=== PATIENT | female | born 1980 | race Caucasian/White ===

== ENCOUNTER → 2020-05-01 15:27 | Outpatient (BNVA) | payer MEDICAID, SELFPAY | PROVIDERS: Family Provider Nurse Practitioner Family; PCP Nurse Practitioner Family; Visit Provider Obstetrics & Gynecology | DX: N94.3 Premenstrual tension syndrome (principal) | CPT/HCPCS: 82670; 83001; 84443 ==

== ENCOUNTER → 2020-06-20 08:28 | Outpatient (BNVA) | payer BC, MEDICAID, SELFPAY | PROVIDERS: Family Provider Nurse Practitioner Family; PCP Nurse Practitioner Family; Visit Provider Psychiatry & Neurology Psychiatry | DX: F41.1 Generalized anxiety disorder (principal); F40.01 Agoraphobia with panic disorder; F33.2 Major depressive disorder, recurrent severe without psychotic features | CPT/HCPCS: 99204 ==

== ENCOUNTER → 2020-08-12 13:57 | Outpatient (BNVA) | payer BC, MEDICAID, SELFPAY | PROVIDERS: Family Provider Nurse Practitioner Family; PCP Nurse Practitioner Family; Visit Provider Obstetrics & Gynecology | DX: R39.9 Unspecified symptoms and signs involving the genitourinary system (principal) | CPT/HCPCS: 81000 ==

== ENCOUNTER → 2020-12-31 11:32 | Outpatient (BNVA) | payer BC, MEDICAID, SELFPAY | PROVIDERS: Family Provider Nurse Practitioner Family; Visit Provider Specialist | DX: G56.03 Carpal tunnel syndrome, bilateral upper limbs (principal) | CPT/HCPCS: 95910 ==

== ENCOUNTER → 2021-04-22 15:11 | Outpatient (BNVA) | payer BC, MEDICAID, SELFPAY | PROVIDERS: Family Provider Nurse Practitioner Family; Referring Provider Orthopaedic Surgery; Visit Provider Physician Assistant | DX: M54.2 Cervicalgia (principal) | CPT/HCPCS: 72050 ==

== ENCOUNTER → 2021-05-01 15:17 | Outpatient (BNVA) | payer MEDICAID, SELFPAY | PROVIDERS: Family Provider Nurse Practitioner Family; Visit Provider Orthopaedic Surgery | DX: Z20.822 Contact with and (suspected) exposure to COVID-19 (principal); Z01.812 Encounter for preprocedural laboratory examination | CPT/HCPCS: 87635 ==

== ENCOUNTER 2021-05-08 11:28 | Day surgery (SDC) | payer MEDICAID, SELFPAY ==
[2021-05-07 12:32] VITALS: BMI 35.4
[2021-05-08] VITALS (7 sets, daily range): BP systolic 117–150; BP diastolic 79–99; PULSE 77–89; RESP 18–20; TEMP 36.4–37.1; O2SAT 97–99
[2021-05-08] MEDS: sodium chloride 0.9% 1,000 ML 30 ML IV (12:22)
--- NOTE | 2021-05-08 12:36 | P.ANESASSM_ITS ---
Pre-Anesthetic Assessment Pre-Anesthetic Assessment: Height/Weight: Height 1.6 m Weight 90.718 kg Temp Pulse Resp BP Pulse Ox 98.2 F 89 18 140/88 97 05/08/21 11:42 05/08/21 11:42 05/08/21 11:42 05/08/21 11:58 05/08/21 11:42 Preop Diagnosis: Carpal tunnel syndromeLeft Proposed Procedure: Operation Date: 05/08/21 12:50 Proposed Procedures p Carpal Tunnel Release 15067 G56.02(Left) - Ezequiel Phelps MD Was Beta Memo taken within 24 hours: N/A Was Clonidine taken within 24 hours: N/A Last intake: Intake Last Liquid Date 05/07/21 Last Liquid Time 23:59 Last Solid Date 05/07/21 Last Solid Time 22:30 Social: Social History: No alcohol and No tobacco Exam: Pre-Anes Outpt Exam: alert, oriented x 3, clear to auscultation bilaterally and regular rate & rhythm Airway: Submandibular: WNL Cervical ROM: WNL MP: 2 Dentition: Full History/ROS: No significant history except as noted Metabolic: Metabolic: Thyroid Anesthetic Plan: ASA status: 2 Anesthesia: MAC and Regional (specify below) (Shay marks) Risk of > 500 ml blood loss (7ml/kg in children): No Meds/Allergies Current Medications: Current Medications Generic Name Dose Route Start Last Admin Trade Name Freq PRN Reason Stop Dose Admin Sodium Chloride 1,000 mls @ 30 ml s/hr 05/08/21 11:45 05/08/21 12:22 Sodium Chloride 0.9% IV 05/09/21 11:44 30 mls/hr .Q24H RONALD Administration PFSH Anesthesia PFSH: Medical History 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 Depression with anxiety History of gestational diabetes GDM with fourth Hot flashes Had LSO, but still has right ovary. Hypothyroidism Surgical History H/O section (09/23/99) H/O section (05/11/02) H/O section (10/05/03) Performed by Dr. Keyes at [facility] in [place], [place]. H/O section (03/28/18) With tubal ligation. Performed by Dr. Kimball at [facility] in [place], [place]. H/O dilation and curettage (~11/2003) Due to bleeding H/O tubal ligation (03/28/18) Performed at time of section. Performed by Dr. Kimball at [facility] in [place], [place]. S/P hysterectomy with oophorectomy (04/04/19) TLH converted to JEF with LSO, extensive adhesiolysis, bladder cystotomy repair. Performed by Dr. Keyes at [facility] in [place], [place]. S/P laparoscopic cholecystectomy (07/27/18) Performed by Dr. Roach at [facility] in [place], [place]. S/P laparoscopy (09/13/09) ROMELIA. Performed by Dr. Keyes at [facility] in [place], [place]. 3-hour adhesiolysis due to omental, ovarian, and tubal adhesions of the pelvis. S/P laparoscopy (08/30/10) ROMELIA. Performed by Dr. Keyes at [facility] in [place], [place]. Extensive adhesions of the omentum to the left uterus and ovary and adhesions of the right tube and ovary. Family History Father Diabetes Hyperlipidemia Hypertension Stroke Heart disease Sister Diabetes Grandmother Heart disease paternal Breast cancer paternal Diabetes Paternal Hypertension Paternal Thyroid disease Paternal Mother Thyroid disease Grandfather Diabetes Paternal Hypertension Paternal Lung cancer Maternal Social History Second hand smoke exposure: No Alcohol intake: never Current gender identity: Female Data Anesthesia Cardiac Studies: No Data to Display
--- NOTE | 2021-05-08 13:46 | W.PM.OPSUD ---
Surgery/Procedure H&P Update DATE OF PROCEDURE: May 08, 2021 DATE H&P PERFORMED: 04/28/21 PREOP DIAGNOSIS: Carpal tunnel syndromeLeft PLANNED PROCEDURE: Operation Date: 05/08/21 12:50 Proposed Procedures p Carpal Tunnel Release 14387 G56.02(Left) - Ezequiel Phelps MD
--- NOTE | 2021-05-08 14:38 | PM.OP ---
Operative Report Date of procedure: May 08, 2021 Pre-op Diagnosis: Carpal tunnel syndromeLeft Post-op diagnosis: same Post-op Findings: Same Procedure Done: Left carpal tunnel release Pathology: none sent Surgeon: Ezequiel Phelps Anesthesia: Nerve Block (Shay block) Estimated blood loss (mL): 5 Tourniquet time (min): 20 Findings: No masses or space-occupying lesions were seen within the carpal tunnel Condition: stable Disposition: PACU Procedure: Patient was taken to the operating room and anesthesia provided by the anesthesia service. She was prepped and draped with the arm exposed. A timeout was performed. A 3 cm long incision was made in line with the fourth ray from the distal edge of the carpal tunnel extending proximally. The subcutaneous fat and palmar fascia was divided with a scalpel blade. Under loupe magnification the ulnar neurovascular bundle was identified distally. A hemostat could be passed under the transverse carpal ligament allowing the distal 25% to be divided. A slotted guide was then passed beneath the transverse carpal ligament and the middle 50% divided. Blunt scissors were then passed over the guide freeing the proximal ligament. The tourniquet was deflated. Hemostasis provided with electrocautery. Wound edges were infiltrated with 10 cc of a half percent Marcaine solution. Skin edges were reapproximated with 3-0 Prolene. Sterile dressings were applied. The patient was taken to the recovery room in stable condition
[2021-05-08] MEDS: HYDROcodone-acetaminophen 5-325 mg Tablet 1 TAB PO (15:19)
--- NOTE | 2021-05-08 15:34 | ANE.PACU2 ---
Inpatient post-anesthesia follow up: Airway intact: Yes Vital signs: Temperature 98.0 F Pulse Rate 79 Respiratory Rate 18 Blood Pressure 150/99 Pulse Oximetry 98 Oxygen Delivery Me thod Room Air Oxygen Flow Rate Fraction of Inspir ed Oxygen Hydration adequate: Yes Nausea and vomiting: No Pain level: 1 Mental status: Baseline
== END 2021-05-08 15:19 | disposition home or self-care (01) ==
PROVIDERS: PCP Family Medicine; Visit Provider Orthopaedic Surgery
PROC: (CPT 64721; principal; 2021-05-08 12:40)
DX: G56.02 Carpal tunnel syndrome, left upper limb (principal); E03.9 Hypothyroidism, unspecified; Z82.49 Family history of ischemic heart disease and other diseases of the circulatory system; Z83.3 Family history of diabetes mellitus
CPT/HCPCS: 64721; 96365; J0690; J2250; J2704; J3010; J3490; J7030

== ENCOUNTER → 2021-09-22 09:30 | Outpatient (BNVA) | payer MEDICAID, SELFPAY | PROVIDERS: PCP Family Medicine; Visit Provider Surgery | DX: K52.9 Noninfective gastroenteritis and colitis, unspecified (principal); R19.7 Diarrhea, unspecified | CPT/HCPCS: 99204 ==

== ENCOUNTER 2021-10-01 11:52 | Emergency (ER) | payer MEDICAID, SELFPAY ==
[2021-10-01 12:18] VITALS: BP 118/77; PULSE 88; RESP 18; TEMP 36.3; O2SAT 97; BMI 33.3
[2021-10-01 12:52] VITALS: BP 135/75; PULSE 86; O2SAT 94
[2021-10-01 12:59] LABS: Basophils % 0.4 %; Eosinophils # 0.1 10^3/uL (0.0-0.8); Eosinophils % 1.2 %; Hemoglobin 14.5 g/dL (11.5-15.3); Lymphocytes # 2.8 10^3/uL (0.8-4.8); Lymphocytes % 27.7 %; Mean Corpuscular HGB Conc 33.7 g/dL (30.0-36.0); Mean Corpuscular Hemoglobin 28.7 pg (28.0-34.0); Monocytes # 0.8 10^3/uL (0.2-0.9); Monocytes % 7.5 %; Neutrophils # 6.41 10^3/uL (1.8-7.7); Neutrophils % 62.8 %; Nucleated Red Blood Cells % 0 %; Platelet Count 389 10^3/cmm (130-400); Red Blood Count 5.06 10^6/uL (4.1-5.3); Red Cell Distribution Width 12.8 % (12.1-15.1); White Blood Count 10.2 10^3/uL (4.0-10.0)
--- NOTE | 2021-10-01 13:12 | ED_ITS ---
Documented by User: ARTURO Cota 10/01/21 15:19 HPI - Abdominal Pain General: Chief Complaint: Abdominal Pain Stated Complaint: Nausous, headache, ABD pain Time Seen by Provider: 10/01/21 12:44 Source: patient Mode of arrival: ambulatory Limitations: no limitations History of Present Illness: Patient is a nice 41-year-old female presents to ED today for evaluation of intermittent abdominal pains over the past week. Patient is also had intermittent nonbloody emesis. Patient tells me she has a history of a bad abdomen dating she has had multiple abdominal surgeries including repeat C-sections, hysterectomy, left oophorectomy, several lysis of adhesions, and a cholecystectomy. She states because of the surgery she chronically has intermittent abdominal pains as well as nausea and diarrhea. She states over the past week or so she did not know if her discomfort was secondary to her chronic discomforts or something new. States she has been having sweats over the past week but again states she has hormone problems so stated this was not overly abnormal for her. She was seen at one of our outside clinics and evaluated and sent to the ED for tenderness to her right lower quadrant and rule out appendicitis. Patient has not been running fevers. No urinary complaints. Bowel movements are loose but states this is baseline for her following her cholecystectomy. MD elicited complaint: abdominal pain Pain Consistency: intermittent Location: Diffuse and RLQ Exacerbating factors: nothing Relieving factors: nothing Associated Symptoms: Reports diarrhea (chronic), nausea and vomiting; Denies change in bowel habits, chills, dysuria, fever(s), hematochezia, hematuria, hematemesis and melena Review of Systems Const: Denies: fever(s), chills, body aches, fatigue or malaise Card: Denies: chest pain Resp: Denies: dyspnea GI: Reports: abdominal pain, nausea, vomiting and diarrhea (chronic); Denies: hematemesis, change in bowel habits, hematochezia or melena : Denies: flank pain, difficulty voiding, dysuria, hematuria or vaginal bleeding Musc: Denies: neck pain, back pain, extremity pain or joint pain Skin/Breast: Denies: rash Neuro: Denies: headache(s), numbness in extremities, weakness in extremities, sensory changes or dizziness [facility] ED PFSH: Medical History 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 Depression with anxiety History of gestational diabetes GDM with fourth Hot flashes Had LSO, but still has right ovary. Hypothyroidism Surgical History H/O section (09/23/99) H/O section (05/11/02) H/O section (10/05/03) Performed by Dr. Keyes at [facility] in [place], [place]. H/O section (03/28/18) With tubal ligation. Performed by Dr. Kimball at [facility] in [place], [place]. H/O dilation and curettage (~11/2003) Due to bleeding H/O tubal ligation (03/28/18) Performed at time of section. Performed by Dr. Kimball at [facility] in [place], [place]. History of carpal tunnel repair S/P hysterectomy with oophorectomy (04/04/19) TLH converted to JEF with LSO, extensive adhesiolysis, bladder cystotomy repair. Performed by Dr. Keyes at [facility] in [place], [place]. S/P laparoscopic cholecystectomy (07/27/18) Performed by Dr. Roach at [facility] in [place]. S/P laparoscopy (09/13/09) ROMELIA. Performed by Dr. Keyes at [facility] in [place], [place]. 3-hour adhesiolysis due to omental, ovarian, and tubal adhesions of the pelvis. S/P laparoscopy (08/30/10) ROMELIA. Performed by Dr. Keyes at [facility] in [place], [place]. Extensive adhesions of the omentum to the left uterus and ovary and adhesions of the right tube and ovary. Family History Father Diabetes Hyperlipidemia Hypertension Stroke Heart disease Sister Diabetes Grandmother Heart disease paternal Breast cancer paternal Diabetes Paternal Hypertension Paternal Thyroid disease Paternal Mother Thyroid disease Grandfather Diabetes Paternal Hypertension Paternal Lung cancer Maternal Social History Smoking and tobacco status: never smoked Second hand smoke exposure: No Alcohol intake: never Current gender identity: Female Physical Exam Const: COMMON NORMALS: no acute distress, patient oriented x3, no limitations and alert GENERAL APPEARANCE: cooperative NUTRITIONAL APPEARANCE: overweight ORIENTATION/CONSCIOUSNESS: Yes awake, Yes oriented to person, Yes oriented to place and Yes oriented to time Resp: COMMON NORMALS: normal respiratory effort and clear to auscultation bilaterally AUSCULTATION: clear to auscultation bilaterally Cardio: COMMON NORMALS: regular rate and regular rhythm RATE: regular rate RHYTHM: regular rhythm GI: COMMON NORMALS: Normal to inspection, nondistended, normoactive bowel sounds present, Soft to palpation, No hepatosplenomegaly present and no masses INSPECTION: Yes normal to inspection AUSCULTATION: Yes normoactive bowel sounds PALPATION: Yes Soft to palpation, Yes Tenderness to palpation present (GI) (diffuse tenderness but maximum tenderness to RLQ), No Guarding due to palpation present (GI), No Rigid due to palpation and Yes No hepatosplenomegaly present : COMMON NORMALS: Yes no CVA tenderness BLADDER/KIDNEY EXAM: Yes no CVA tenderness Back/Pelvis: COMMON NORMALS: no CVA tenderness Extremity: COMMON NORMALS: normal to inspection Neuro: GASTON COMA SCALE: document GCS findings [place] coma scale eye opening: Spontaneous Gaston coma scale verbal response: Orientated [place] coma scale motor response: Obey commands [place] coma scale total score: 15 COMMON NORMALS: patient oriented x3, moves all extremities, no focal motor deficits and no sensory deficits noted SENSORIUM/ORIENTATION: Yes alert, Yes oriented to person, Yes oriented to place and Yes oriented to time Skin: COMMON NORMALS: no rashes or lesions noted GENERAL SKIN EXAM: no rashes or lesions noted Course Vital Signs: Vital signs: Vital Signs Temperature 97.3 F L 10/01/21 12:18 Pulse Rate 62 10/01/21 15:32 Respiratory Rate 18 10/01/21 12:18 Blood Pressure 129/61 10/01/21 15:32 Pulse Oximetry 100 10/01/21 15:32 MDM - Abdominal Pain Medical Decision Making Patient is a nice 41-year-old female with a history of chronic abdominal d iscomforts. She had had some acute on chronic pains over the past week or so. On exam she does have diffuse abdominal tenderness with most of her pain being near her right lower quadrant. She is not tachycardic or febrile. Her white count is 10.2. CT scan is essentially normal. She does have an appendicolith present in her distal appendix but there is no evidence for acute appendicitis. Patient was given strict instructions regarding how this could in theory increase her risk for later developing acute appendicitis and signs and symptoms that should prompt a return to ED evaluation were discussed with her. Her UA does show hematuria without evidence for infection. Patient clinically does not present like a kidney stone and no stone was seen on CT imaging. She is not having UTI-like symptoms. She is status post hysterectomy and denies any vaginal bleeding. We will culture this and recommend she have a UA repeated through her PCP office. Lab Data : 10/01/21 12:45 10/01/21 12:45 Labs/Radiology: Radiology Impressions Abdomen/Pelvis CT 10/01/21 13:17 IMPRESSION: 1. No renal obstruction or hydronephrosis. 2. Normal size appendix. There is an appendicolith present in the distal appendix. At this time there is no evidence for acute appendicitis. 3. Prior cholecystectomy. 4. Supraumbilical and umbilical hernias. Laboratory Results WBC 10.2 10^3/uL (4.0-10.0) H 10/01/21 12:45 RBC 5.06 10^6/uL (4.1-5.3) 10/01/21 12:45 Hgb 14.5 g/dL (11.5-15.3) 10/01/21 12:45 Hct 43.0 % (37.0-47.0) 10/01/21 12:45 MCV 85.0 fl (81-99) 10/01/21 12:45 MCH 28.7 pg (28.0-34.0) 10/01/21 12:45 MCHC 33.7 g/dL (30.0-36.0) 10/01/21 12:45 RDW 12.8 % (12.1-15.1) 10/01/21 12:45 Plt Count 389 10^3/cmm (130-400) 10/01/21 12:45 MPV 9.0 fL (7.4-10.4) 10/01/21 12:45 Neut % (Auto) 62.8 % 10/01/21 12:45 Lymph % (Auto) 27.7 % 10/01/21 12:45 Hodgeman % (Auto) 7.5 % 10/01/21 12:45 Eos % (Auto) 1.2 % 10/01/21 12:45 Baso % (Auto) 0.4 % 10/01/21 12:45 Neut # (Auto) 6.41 10^3/uL (1.8-7.7) 10/01/21 12:45 Lymph # (Auto) 2.8 10^3/uL (0.8-4.8) 10/01/21 12:45 Hodgeman # (Auto) 0.8 10^3/uL (0.2-0.9) 10/01/21 12:45 Eos # (Auto) 0.1 10^3/uL (0.0-0.8) 10/01/21 12:45 Baso # (Auto) 0.0 10^3/uL (0.0-0.1) 10/01/21 12:45 Nucleated RBC % (auto) 0 % 10/01/21 12:45 Nucleated RBCs # 0.0 /100WBC 10/01/21 12:45 Sodium 135 mmol/L (136-145) L 10/01/21 12:45 Potassium 3.4 mmol/L (3.5-5.1) L 10/01/21 12:45 Chloride 98 mmol/L (98-107) 10/01/21 12:45 Carbon Dioxide 24 mmol/L (22-29) 10/01/21 12:45 Anion Gap 16.4 (5-19) 10/01/21 12:45 BUN 7 mg/dL (6-20) 10/01/21 12:45 Creatinine 0.5 mg/dL (0.5-0.9) 10/01/21 12:45 GFR Calculation 136.6 mL/min (90-130) H 10/01/21 12:45 Glucose 83 mg/dL (65-115) 10/01/21 12:45 Calculated Osmolality 277 mOsm/kg (285-295) L 10/01/21 12:45 Calcium 9.9 mg/dL (8.5-10.5) 10/01/21 12:45 Total Bilirubin 0.5 mg/dL (0.15-1.2) 10/01/21 12:45 AST 16 U/L (0-32) 10/01/21 12:45 ALT 10 U/L (0-33) 10/01/21 12:45 Alkaline Phosphatase 66 IU/L (35-105) 10/01/21 12:45 Total Protein 7.9 g/dL (6.6-8.7) 10/01/21 12:45 Albumin 4.7 g/dL (3.5-5.2) 10/01/21 12:45 Globulin 3.2 g/dL (1.3-4.6) 10/01/21 12:45 Lipase 13 U/L (13-60) 10/01/21 12:45 Urine Color Yellow (Yellow) 10/01/21 13:35 Urine Appearance Clear (CLEAR) 10/01/21 13:35 Urine pH 5 (5-7) 10/01/21 13:35 Ur Specific [place] 1.030 (1.005-1.030) 10/01/21 13:35 Urine Protein Neg (Negative) 10/01/21 13:35 Urine Glucose (UA) Norm (Normal) 10/01/21 13:35 Urine Ketones 2+ (Negative) H 10/01/21 13:35 Urine Blood 3+ (Negative) H 10/01/21 13:35 Urine Nitrate Negative (Negative) 10/01/21 13:35 Urine Bilirubin Neg (Negative) 10/01/21 13:35 Urine Urobilinogen Norm mg/dL (Negative) 10/01/21 13:35 Ur Leukocyte Esterase Negative (Negative) 10/01/21 13:35 Urine RBC 0-4 /hpf (0-2) H 10/01/21 13:35 Urine WBC 0-4 /hpf (0-5) H 10/01/21 13:35 Ur Squamous Epith Cells 0-4 /hpf (0-5) H 10/01/21 13:35 Amorphous Sediment Not Reportable 10/01/21 13:35 Urine Bacteria 2+ /hpf (NONE) H 10/01/21 13:35 Urine Mucus 1+ /hpf 10/01/21 13:35 Discharge Plan Discharge Patient Disposition: Home Clinical Impression: Abdominal pain of unknown cause, Appendicolith Condition: Stable Prescriptions: New ondansetron 4 mg tablet,disintegrating 4 mg PO Q8H PRN (Reason: nausea and vomiting) Qty: 14 0RF No Action estradiol 1 mg tablet 1 mg PO DAILY 0RF Rx Instructions: off 1 week; repeat cycle levothyroxine 125 mcg tablet 125 mcg PO DAILY 0RF carisoprodol 250 mg tablet 250 mg PO TID Qty: 30 2RF zolpidem [Ambien] 10 mg tablet 10 mg PO .at bedtime 30 Days Qty: 30 2RF ondansetron HCl 4 mg tablet 4 mg PO .q6hr Qty: 30 2RF escitalopram oxalate 5 mg tablet 5 mg PO DAILY Qty: 30 2RF quetiapine [Seroquel] 50 mg tablet 50 mg PO DAILY Qty: 30 0RF cholestyramine-aspartame 4 gram Powder In Packet 4 g PO DAILY 0RF Discharge Orders: Discharge ED (Routine); Ordered 10/01/21 Ordered By: Romy Coffman Referrals: Doc Lucas DO [Primary Care Provider] - Patient Instructions: Abdominal Pain (ED) Activity Restrictions/Additional Instructions: As we discussed your blood work is essentially normal here. You were found to have blood in your urine without evidence for infection. I would like you to have a repeat UA performed by her primary care provider in the next week or so. As we discussed you had an appendicolith in your appendix but there is nothing to suggest acute appendicitis at this time. Recommend you continue to watch symptoms closely. You need to return to the emergency department for worsening abdominal pains, localizing to your right lower quadrant, fevers greater than 100.4, generally feeling worse, or any other concerns you may have. 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 Depression with anxiety History of gestational diabetes GDM with fourth Hot flashes Had LSO, but still has right ovary. Hypothyroidism Surgical History H/O section (09/23/99) H/O section (05/11/02) H/O section (10/05/03) Performed by Dr. Keyes at [facility] [place] in [place], [place]. H/O section (03/28/18) With tubal ligation. Performed by Dr. Kimball at [facility] in [place], [place]. H/O dilation and curettage (~11/2003) Due to bleeding H/O tubal ligation (03/28/18) Performed at time of section. Performed by Dr. Kimball at [facility] [place] in [place], [place]. History of carpal tunnel repair S/P hysterectomy with oophorectomy (04/04/19) TLH converted to JEF with LSO, extensive adhesiolysis, bladder cystotomy repair. Performed by Dr. Keyes at [facility] [place] in [place], [place]. S/P laparoscopic cholecystectomy (07/27/18) Performed by Dr. Roach at [facility] [place] in [place]. S/P laparoscopy (09/13/09) ROMELIA. Performed by Dr. Keyes at [facility] [place] in [place], [place]. 3-hour adhesiolysis due to omental, ovarian, and tubal adhesions of the pelvis. S/P laparoscopy (08/30/10) ROMELIA. Performed by Dr. Keyes at [facility] in [place], [place]. Extensive adhesions of the omentum to the left uterus and ovary and adhesions of the right tube and ovary. Family History Father Diabetes Hyperlipidemia Hypertension Stroke Heart disease Sister Diabetes Grandmother Heart disease paternal Breast cancer paternal Diabetes Paternal Hypertension Paternal Thyroid disease Paternal Mother Thyroid disease Grandfather Diabetes Paternal Hypertension Paternal Lung cancer Maternal Social History Smoking and tobacco status: never smoked Second hand smoke exposure: No Alcohol intake: never Current gender identity: Female Physical Exam Neuro: GASTON COMA SCALE: document GCS findings [place] coma scale total score: 15 Course Vital Signs: Vital signs: Vital Signs Temperature 97.3 F L 10/01/21 12:18 Pulse Rate 62 10/01/21 15:32 Respiratory Rate 18 10/01/21 12:18 Blood Pressure 129/61 10/01/21 15:32 Pulse Oximetry 100 10/01/21 15:32 MDM - Abdominal Pain Medical Decision Making Patient is a nice 41-year-old female with a history of chronic abdominal discomforts. She had had some acute on chronic pains over the past week or so. On exam she does have diffuse abdominal tenderness with most of her pain being near her right lower quadrant. She is not tachycardic or febrile. Her white count is 10.2. CT scan is essentially normal. She does have an appendicolith present in her distal appendix but there is no evidence for acute appendicitis. Patient was given strict instructions regarding how this could in theory increase her risk for later developing acute appendicitis and signs and symptoms that should prompt a return to ED evaluation were discussed with her. Her UA does show hematuria without evidence for infection. Patient clinically does not present like a kidney stone and no stone was seen on CT imaging. She is not having UTI-like symptoms. She is status post hysterectomy and denies any vaginal bleeding. We will culture this and recommend she have a UA repeated through her PCP office. Chart reviewed and patient discussed with midlevel. Agree with assessment and plan. Medical Records I reviewed the patient's medical records. Lab Data I reviewed the patient's lab results. : 10/01/21 12:45 10/01/21 12:45 Labs/Radiology: Radiology Impressions Abdomen/Pelvis CT 10/01/21 13:17
[2021-10-01 13:16] LABS: Alanine Aminotransferase 10 U/L (0-33); Albumin Level 4.7 g/dL (3.5-5.2); Alkaline Phosphatase 66 IU/L (35-105); Blood Urea Nitrogen 7 mg/dL (6-20); Calcium 9.9 mg/dL (8.5-10.5); Carbon Dioxide 24 mmol/L (22-29); Chloride 98 mmol/L (98-107); Globulin 3.2 g/dL (1.3-4.6); Glomerular Filtration Rate 136.6 mL/min (90-130); Glucose 83 mg/dL (65-115); Lipase 13 U/L (13-60); Osmolality Calculated 277 mOsm/kg (285-295); Sodium 135 mmol/L (136-145); Total Bilirubin 0.5 mg/dL (0.15-1.2); Total Protein 7.9 g/dL (6.6-8.7)
--- NOTE | 2021-10-01 13:17 | CT_ITS ---
WS: [id number] CT ABDOMEN AND PELVIS NONCONTRAST HISTORY: abdominal pain, vomiting; max tenderness to RLQ TECHNIQUE: Imaging performed through the abdomen and pelvis. Coronal and sagittal reformats are submi tted. All CT scans at [facility] use at least one of these dose optimization techniques: auto mated exposure control; mA and/or kV adjustment per patient size (includes targeted exams where dose is matched to clinical indication); or iterative reconstruction. DLP: 1714.9 mGy.cm COMPARISON: 06/30/2018 Lower thorax: Lung bases are clear. Visualized heart is normal. No hiatal hernia. Liver: Variable density within the liver from hepatic steatosis and areas of sparing. No bile duct di latation. No mass appreciated. Gallbladder: Prior cholecystectomy. Pancreas: Normal size and attenuation. Normal pancreatic duct. No pancreatitis or mass. Spleen: Normal. Adrenal glands: Normal. No mass. Right kidney: Normal size kidney with no mass or hydronephrosis. Left kidney: Normal size kidney with no mass or hydronephrosis. Aorta: Normal abdominal aorta, no aneurysm or atherosclerosis. No free fluid, intraperitoneal air or significant lymphadenopathy. GI tract: The appendix is normal size. No evidence for appendicitis. There is a phlebolith in the dis ana appendix. The appendix measures 6 mm. At this time there is no evidence for appendicitis. No shaw cent inflammation. No GI tract obstruction. No colitis. Abdominal wall: Small umbilical hernia contains fat only. There is an additional supraumbilical herni a in the midline containing omental fat only. Pelvis: Prior hysterectomy. RIGHT ovary is still present and normal size. No adjacent inflammation. N o free fluid in the pelvis. Osseous structures: Unremarkable. CT/CT abdomen pelvis wo con [id number] IMPRESSION: 1. No renal obstruction or hydronephrosis. 2. Normal size appendix. There is an appendicolith present in the distal appen emelyn. At this time there is no evidence for acute appendicitis. 3. Prior cholecystectomy. 4. Supraumbilical and umbilical hernias.
[2021-10-01 13:22] VITALS: BP 127/76; PULSE 53; O2SAT 93
[2021-10-01 13:25] LABS: Anion Gap 16.4 (5-19); Potassium 3.4 mmol/L (3.5-5.1)
[2021-10-01 13:26] LABS: Aspartate Amino Transferase 16 U/L (0-32)
[2021-10-01] MEDS: sodium chloride 0.9% 1,000 ML 999 ML IV (13:45)
[2021-10-01] MEDS: ondansetron 2 mg/ML SDV 2 mL 4 MG IVP (13:45)
[2021-10-01 13:58] LABS: Add Urine Microscopic? YES; Bilirubin Urine Neg (Negative); Blood Urine 3+ (Negative); Glucose Urine UA Norm (Normal); Ketones Urine 2+ (Negative); Leukocyte Esterase Urine Negative (Negative); Nitrate Urine Negative (Negative); Protein Urine Neg (Negative); Urine Appearance Clear (CLEAR); Urine Color Yellow (Yellow); Urobilinogen Urine Norm (Negative); pH Urine 5 (5-7)
[2021-10-01 14:00] LABS: Add Urine Culture? Yes; Bacteria Urine 2+ /hpf; Mucus Urine 1+ /hpf; RBC Urine 0-4 /hpf (0-2); Squamous Epithelial Cell Urine 0-4 /hpf (0-5); WBC Urine 0-4 /hpf (0-5)
[2021-10-01] MEDS: acetaminophen 500 mg Tablet 1000 MG PO (14:55)
[2021-10-01 15:00] VITALS: PULSE 53; O2SAT 96
[2021-10-01 15:32] VITALS: BP 129/61; PULSE 62; O2SAT 100
== END 2021-10-01 15:34 | disposition home or self-care (01) ==
PROVIDERS: Emergency Provider Physician Assistant; PCP Family Medicine
DX: K38.1 Appendicular concretions (principal); R10.9 Unspecified abdominal pain
CPT/HCPCS: 74176; 80053; 81001; 83690; 85025; 87086; 96361; 96374; 99284; J2405; J7030

== ENCOUNTER → 2022-04-29 13:32 | Outpatient (BNVA) | payer MEDICAID, SELFPAY | PROVIDERS: PCP Family Medicine; Visit Provider Orthopaedic Surgery | DX: M54.2 Cervicalgia (principal) | CPT/HCPCS: 72050 ==

== ENCOUNTER 2022-06-11 13:29 | Outpatient (CLI) | payer OTHER, MEDICAID, SELFPAY ==
--- NOTE | 2022-06-11 13:38 | MM_ITS ---
WS: [id number] BILATERAL 3D TOMOSYNTHESIS DIGITAL SCREENING MAMMOGRAPHY WITH CAD CLINICAL INFORMATION: SCREENING HISTORY: Screening mammogram. Bilateral breast soreness COMPARISON: None. TECHNIQUE: Bilateral CC and MLO views. FINDINGS: The breasts are composed of heterogeneous fibroglandular density tissue, which can limit the detectio n of small underlying mass lesions. Dense asymmetric breast tissue upper outer and central LEFT breas t anteriorly. Recommend spot compression views and ultrasound if persistent. A few incidental punctat e calcifications. Vascular calcification. RIGHT breast is unremarkable. MM/[place] [id number] IMPRESSION: BI-RADS: 0-Incomplete: Need additional imaging evaluation FOLLOW UP: Need Additional Imaging Recommend LEFT breast diagnostic mammography with spot compression views and ul trasound if persistent.
== END 2022-06-11 13:30 | disposition home or self-care (01) ==
LOC: RAD 13:31
PROVIDERS: PCP Family Medicine; Visit Provider Family Medicine
DX: Z12.31 Encounter for screening mammogram for malignant neoplasm of breast (principal)
CPT/HCPCS: 77063; 77067

== ENCOUNTER 2022-07-09 14:14 | Outpatient (CLI) | payer OTHER, MEDICAID, SELFPAY ==
--- NOTE | 2022-07-09 14:32 | MM_ITS ---
WS: [id number] LEFT 3D TOMOSYNTHESIS DIGITAL MAMMOGRAPHY WITH CAD CLINICAL INFORMATION: ABNORMAL MAMMO HISTORY: Additional views COMPARISON: June 11, 2022 TECHNIQUE: 3 views of the left breast were obtained. FINDINGS: The left breast is composed of heterogeneous fibroglandular density tissue, which can limit the detec tion of small underlying mass lesions. Stable dense parenchymal tissue upper outer and central LEFT b reast. This persists on spot compression views. Ultrasound described below. ULTRASOUND BREAST LEFT TECHNIQUE: Ultrasound left breast focused area of concern. CLINICAL INFORMATION: ABNORMAL MAMMO FINDINGS: Ultrasound LEFT breast 12 to 3:00 position. Dense underlying parenchymal tissue. No suspicious cystic or solid lesions. No lesions to target for biopsy. Ultrasound LEFT breast 9:00 position 2 cm from the nipple in the area of patient concern. Dense under lying parenchymal tissue.No suspicious cystic or solid lesions. No lesions to target for biopsy. Recommend return to annual screening mammography. MM/[place] [id number] IMPRESSION: BI-RADS: 2-Benign FOLLOW UP: 1 Year Follow-up
== END 2022-07-09 14:15 | disposition home or self-care (01) ==
PROVIDERS: PCP Family Medicine; Visit Provider Family Medicine
DX: R92.8 Other abnormal and inconclusive findings on diagnostic imaging of breast (principal)
CPT/HCPCS: 76642; 77061; G0279

== ENCOUNTER 2022-09-04 08:13 | Emergency (ER) | payer OTHER, MEDICAID, SELFPAY ==
[2022-09-04 08:21] VITALS: BP 129/96; PULSE 85; RESP 14; TEMP 36.7; O2SAT 98
--- NOTE | 2022-09-04 08:35 | W.ED.PSYCHS ---
HPI - Psych General: Chief Complaint: Psychiatric Symptoms Stated Complaint: mhe Time Seen by Provider: 09/04/22 08:17 Source: patient Mode of arrival: ambulatory Limitations: no limitations History of Present Illness: Patient is a 42-year-old female who presents to the ED today after she was told to come here by the crisis stabilization center for evaluation and possible treatment of her anxiety and depression. Patient states she has a longstanding history of anxiety. She states approximately a year ago she lost her secondary to traumatic brain injury and since then has been struggling immensely juggling being a single parent and working full-time. She states her 4-year-old daughter has severe separation anxiety and so she struggles dropping her off at school and being away from her while she works. She states that stress and anxiety on the depression are becoming too much she has feelings of not wanting to be here . She tells me that she does not have any active thoughts of suicide. She states she would never harm herself because she is all her daughter has . She has never attempted suicide previously. Patient states she does get services at [facility] and is on medications for anxiety and depression. She has services scheduled for next week as well. MD complaint: feels depressed and other (anxiety) Onset (ago): week(s) Duration: constant and getting worse History of same: Yes Relieving factors: none Exacerbating factors: none Context: significant life stressor (one year ago her ) Associated psychiatric symptoms: depression Associated symptoms: Reports depression; Deny auditory hallucinations, visual hallucinations, homicidal ideation or suicidal ideation Treatments prior to arrival: none Review of Systems Const: Denies: fever(s) or chills Card: Denies: chest pain, palpitations, lightheadedness or syncope Resp: Denies: dyspnea GI: Denies: abdominal pain, nausea, vomiting or diarrhea Skin/Breast: Denies: rash Neuro: Denies: headache(s) Psych: Reports: anxiety, depression, panic attacks, sleeping less and hopelessness; Denies: irritability, paranoia, memory loss, visual hallucinations, auditory hallucinations, suicidal ideation or homicidal ideation [facility] ED PFSH: Medical History 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 Depression with anxiety History of gestational diabetes GDM with fourth Hot flashes Had LSO, but still has right ovary. Hypothyroidism Psychiatric care Surgical History H/O section (09/23/99) H/O section (05/11/02) H/O section (10/05/03) Performed by Dr. Keyes at [facility] in [place], [place]. H/O section (03/28/18) With tubal ligation. Performed by Dr. Kimball at [facility] in [place], [place]. H/O dilation and curettage (~11/2003) Due to bleeding H/O tubal ligation (03/28/18) Performed at time of section. Performed by Dr. Kimball at [facility] in [place], [place]. History of carpal tunnel repair S/P hysterectomy with oophorectomy (04/04/19) TLH converted to JEF with LSO, extensive adhesiolysis, bladder cystotomy repair. Performed by Dr. Keyes at [facility] in [place], [place]. S/P laparoscopic cholecystectomy (07/27/18) Performed by Dr. Roach at [facility] in [place], [place]. S/P laparoscopy (09/13/09) ROMELIA. Performed by Dr. Keyes at [facility] in [place], [place]. 3-hour adhesiolysis due to omental, ovarian, and tubal adhesions of the pelvis. S/P laparoscopy (08/30/10) RMOELIA. Performed by Dr. Keyes at [facility] in [place], [place]. Extensive adhesions of the omentum to the left uterus and ovary and adhesions of the right tube and ovary. Family History Father Diabetes Hyperlipidemia Hypertension Stroke Heart disease Sister Diabetes Grandmother Heart disease paternal Breast cancer paternal Diabetes Paternal Hypertension Paternal Thyroid disease Paternal Mother Thyroid disease Grandfather Diabetes Paternal Hypertension Paternal Lung cancer Maternal Social History Smoking and tobacco status: never smoked Second hand smoke exposure: No Alcohol intake: never Current gender identity: Female Physical Exam Const: COMMON NORMALS: no acute distress, patient oriented x3, alert and well nourished GENERAL APPEARANCE: cooperative and well kempt Resp: COMMON NORMALS: normal respiratory effort and clear to auscultation bilaterally AUSCULTATION: clear to auscultation bilaterally Cardio: COMMON NORMALS: regular rate and regular rhythm RATE: regular rate RHYTHM: regular rhythm Neuro: COMMON NORMALS: patient oriented x3 SENSORIUM/ORIENTATION: Yes alert Psych: COMMON NORMALS: mental status grossly normal, Normal thought process present, cooperative, normal affect, speech normal, activity/motor behavior normal, denies hallucinations, denies homicidal ideation and denies suicidal ideation APPEARANCE: Yes grossly normal and Yes well kempt ATTITUDE: Yes calm ACTIVITY/MOTOR BEHAVIOR: Yes appropriate eye contact and No psychomotor agitation SPEECH: Yes normal speech MOOD & AFFECT: Yes tearful THOUGHT PROCESS: Normal thought process present THOUGHT CONTENT: Yes Normal thought content present ATTENTION/CONCENTRATION: Yes attention grossly intact and Yes concentration grossly intact MEMORY/COGNITION: Yes memory grossly intact and Yes cognition grossly intact INSIGHT: Good insight present (Psych) JUDGEMENT: Good judgement present (Psych) Course Vital Signs: Vital signs: Vital Signs Temperature 98.1 F 09/04/22 09:02 Pulse Rate 85 09/04/22 09:02 Respiratory Rate 14 09/04/22 09:02 Blood Pressure 129/96 09/04/22 09:02 Pulse Oximetry 98 09/04/22 09:02 Oxygen Delivery Me thod Room Air 09/04/22 08:21 [facility] - Psych Medical Decision Making Patient states she went to the crisis stabilization center this morning but they were not open/locked because of some type of meeting but states she has a friend that works there who instructed her to come to the ED. She was under the impression that she would receive psychiatric evaluation and possible medication adjustments from the emergency department and I informed her unfortunately this is something that we do not routinely do. I did discuss case with Dr. Lauren who shared my frustration on what we could offer her from an ED standpoint. I did offer [facility] admission however patient states she is not able to be hospitalized at this time as her 4-year-old is in school and she must pick her up at the end of the day. In addition she has preschool screening she must attend as well. Patient states she is not actively suicidal and would never harm herself. staffing account manager did contact crisis and told me they would be open at 11:00 today. I recommend she go there then and they consult with psychiatry on-call for further instructions. Again patient does have appointments already scheduled for next week for follow-up. Patient feels safe with this plan. She does not feel like she is an eminent danger to herself at this time. Patient states she works at [employer] and also has services there she could utilize for emergencies. Discharge Plan Discharge Patient Disposition: Home Clinical Impression: Panic attacks, Chronic anxiety Depression Qualifiers: Depression Type: major depressive disorder Major depression recurrence: recurrent Active/Remission status: currently active Major depression episode severity: unspecified Qualified Code(s): F33.9 - Major depressive disorder, recurrent, unspecified Condition: Stable Prescriptions: No Action estradiol 1 mg tablet 1 mg PO DAILY Rx Instructions: off 1 week; repeat cycle levothyroxine 125 mcg tablet 125 mcg PO DAILY zolpidem [Ambien] 10 mg tablet 10 mg PO .at bedtime 30 Days Qty: 30 2RF acyclovir 400 mg tablet 400 mg PO DAILY diazepam 5 mg tablet 5 mg PO BID PRN Tri-Sheila 0.01-4-0.05 % cream 1 applic topical DAILY Qty: 30 2RF Rx Instructions: Apply a thin layer to affected area(s) once daily, as needed. ondansetron HCl 4 mg tablet 4 mg PO .q6hr Qty: 30 2RF escitalopram oxalate 5 mg tablet 5 mg PO DAILY Qty: 30 2RF quetiapine [Seroquel] 50 mg tablet 50 mg PO DAILY Qty: 30 0RF carisoprodol 250 mg tablet 250 mg PO TID Qty: 90 0RF cholestyramine-aspartame 4 gram Powder In Packet 4 g PO DAILY ondansetron 4 mg tablet,disintegrating 4 mg PO Q8H PRN (Reason: nausea and vomiting) Qty: 14 0RF Discharge Orders: Discharge ED (Routine); Ordered 09/04/22 Ordered By: Romy Coffman Referrals: Doc Lucas DO [Primary Care Provider] - Activity Restrictions/Additional Instructions: As we discussed I recommend that you go to [facility] at 11:00 today when they open. They can consult with psychiatry for any recommendations on medication changes. 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 You do need to return to the emergency department for any thoughts of suicide or self-harm. Continue current plan with your therapy/psychiatry appointments that are scheduled for next week. Coding Level of Care Code ED Employee Benefits Director for [employer]
[2022-09-04 09:02] VITALS: BP 129/96; PULSE 85; RESP 14; TEMP 36.7; O2SAT 98
== END 2022-09-04 09:03 | disposition home or self-care (01) ==
PROVIDERS: Emergency Provider Physician Assistant; PCP Family Medicine
DX: F41.1 Generalized anxiety disorder (principal); F41.0 Panic disorder [episodic paroxysmal anxiety]; F33.9 Major depressive disorder, recurrent, unspecified
CPT/HCPCS: 99282

== ENCOUNTER 2022-11-03 09:58 | Emergency (ER) | payer OTHER, MEDICAID, SELFPAY ==
[2022-11-03] VITALS (7 sets, daily range): BP systolic 116–160; BP diastolic 78–122; PULSE 65–88; RESP 16–21; TEMP 37.1; O2SAT 94–100; BMI 32.9
--- NOTE | 2022-11-03 10:16 | XRR_ITS ---
PROCEDURE INFORMATION: Exam: XR Chest Exam date and time: 11/03/2022 9:23 AM Age: 42 years old Clinical indication: Pain; Shortness of breath; Angina pectoris; Prior surgery; Surgery date: 6+ months; Surgery type: Stomach; Additional info: Cp TECHNIQUE: Imaging protocol: Radiologic exam of the chest. Views: 1 view. COMPARISON: CR XR cervical spine 4-5V [id number] 04/29/2022 1:32 PM FINDINGS: Lungs: No focal airspace disease. Pleural spaces: Unremarkable. No pleural effusion. No pneumothorax. Heart/Mediastinum: Cardiomediastinal silhouette is within normal limits. Bones/joints: Unremarkable. XR/XR chest 1V portable [id number] IMPRESSION: No acute cardiopulmonary abnormality.
--- NOTE | 2022-11-03 10:31 | W.ED.CHESTPA ---
HPI - Chest Pain General: Chief Complaint: Chest Pain Stated Complaint: generalized pain Time Seen by Provider: 11/03/22 10:16 History of Present Illness: Patient is a 42-year-old female who comes to the ED with chest pain. Symptoms started last night while at rest. She said her chest pain is a constant aching pain that she describes as being very deep and is located on the right side of her chest. It radiates into her right arm. She rates pain currently a 7 out of 10. Right side of chest is sore and tender to the touch. She denies any cardiac history. denies any other worsening or improving factors. Endorses nausea. She also describes having some chronic back pain, abdominal pain. She states that since she has her gallbladder removed she has daily diarrhea. Patient screened in triage as a suicide risk. I asked patient if she is suicidal and she said no. She states that her did almost a year ago and she does not want to be here. I asked what that means and she says she does not want to be on earth but she would never commit suicide because she has a 4-year-old child that she takes care of. Associated symptoms: Deny abdominal pain, dyspnea, fever(s), nausea, palpitations or vomiting Review of Systems Const: Denies: fever(s), chills or fatigue Eyes: Denies: change in vision or eye discomfort ENMT: Denies: throat pain, odynophagia, nasal discharge or nasal congestion Card: Reports: chest pain; Denies: palpitations, edema, swelling of feet/ankles, dyspnea on exertion or orthopnea Resp: Denies: dyspnea, productive cough or non-productive cough GI: Denies: abdominal pain, nausea, vomiting, diarrhea, constipation or hematochezia : Denies: flank pain, dysuria or hematuria Musc: Denies: neck pain, back pain or extremity swelling Skin/Breast: Denies: rash or new lesions Neuro: Denies: headache(s), numbness in extremities or weakness in extremities [facility] ED PFSH: Medical History 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 Depression with anxiety Grief reaction with prolonged bereavement History of gestational diabetes GDM with fourth Hot flashes Had LSO, but still has right ovary. Hypothyroidism Psychiatric care Surgical History H/O section (09/23/99) H/O section (05/11/02) H/O section (10/05/03) Performed by Dr. Keyes at [facility] in [place], [place]. H/O section (03/28/18) With tubal ligation. Performed by Dr. Kimball at [facility] in [place], [place]. H/O dilation and curettage (~11/2003) Due to bleeding H/O tubal ligation (03/28/18) Performed at time of section. Performed by Dr. Kimball at [facility] in [place], [place]. History of carpal tunnel repair S/P hysterectomy with oophorectomy (04/04/19) TLH converted to JEF with LSO, extensive adhesiolysis, bladder cystotomy repair. Performed by Dr. Keyes at [facility] in [place], [place]. S/P laparoscopic cholecystectomy (07/27/18) Performed by Dr. Roach at [facility] in [place], [place]. S/P laparoscopy (09/13/09) ROMELIA. Performed by Dr. Keyes at [facility] in [place], [place]. 3-hour adhesiolysis due to omental, ovarian, and tubal adhesions of the pelvis. S/P laparoscopy (08/30/10) ROMELIA. Performed by Dr. Keyes at [facility] in [place], [place]. Extensive adhesions of the omentum to the left uterus and ovary and adhesions of the right tube and ovary. Family History Father Diabetes Hyperlipidemia Hypertension Stroke Heart disease Sister Diabetes Grandmother Heart disease paternal Breast cancer paternal Diabetes Paternal Hypertension Paternal Thyroid disease Paternal Mother Thyroid disease Grandfather Diabetes Paternal Hypertension Paternal Lung cancer Maternal Social History Smoking and tobacco status: never smoked Second hand smoke exposure: No Alcohol intake: never Substance/Drug Use: never Current gender identity: Female Physical Exam Const: COMMON NORMALS: patient oriented x3 and alert GENERAL APPEARANCE: cooperative and anxious HENMT: COMMON NORMALS: normocephalic HEAD & SCALP: normocephalic MOUTH: Normal oral and palatal mucosa present THROAT: posterior oropharynx normal and uvula midline Neck/C-Spine: COMMON NORMALS: supple GENERAL: Yes normal visual inspection Resp: COMMON NORMALS: normal respiratory effort, No retractions, No use of accessory muscles and clear to auscultation bilaterally AUSCULTATION: clear to auscultation bilaterally Cardio: COMMON NORMALS: regular rate, regular rhythm, S1 normal heart sound present, S2 normal heart sound present, No gallops present (Cardio), No clicks present (Cardio), No murmurs present (Cardio) and Peripheral pulses 2+ throughout RATE: regular rate RHYTHM: regular rhythm HEART SOUNDS: S1 normal heart sound present and S2 normal heart sound present PERIPHERAL PULSES: Peripheral pulses 2+ throughout GI: COMMON NORMALS: Normal to inspection, nondistended, normoactive bowel sounds present, Soft to palpation, non-tender and no masses PALPATION: Yes Soft to palpation : COMMON NORMALS: Yes no CVA tenderness BLADDER/KIDNEY EXAM: Yes no CVA tenderness Back/Pelvis: COMMON NORMALS: no CVA tenderness Extremity: COMMON NORMALS: normal to inspection Neuro: COMMON NORMALS: patient oriented x3 SENSORIUM/ORIENTATION: Yes alert GAIT: Yes Normal gait present Skin: GENERAL SKIN EXAM: dry skin Course Vital Signs: Vital signs: Vital Signs Temperature 98.7 F 11/03/22 10:12 Pulse Rate 65 11/03/22 13:57 Respiratory Rate 21 H 11/03/22 13:57 Blood Pressure 130/89 11/03/22 13:57 Pulse Oximetry 97 11/03/22 13:57 Oxygen Delivery Me thod Room Air 11/03/22 13:19 MDM - Chest Pain Medical Decision Making Patient is a 42-year-old female who comes to the ED with chest pain. Symptoms started last night while at rest. She said her chest pain is a constant aching pain that she describes as being very deep and is located on the right side of her chest. It radiates into her right arm. She rates pain currently a 7 out of 10. Right side of chest is sore and tender to the touch. She denies any cardiac history. denies any other worsening or improving factors. Endorses nausea. She also describes having some chronic back pain, abdominal pain. She states that since she has her gallbladder removed she has daily diarrhea. Patient screened in triage as a suicide risk. I asked patient if she is suicidal and she said no. She states that her did almost a year ago and she does not want to be here. I asked what that means and she says she does not want to be on earth but she would never commit suicide because she has a 4-year-old child that she takes care of. Vitals are stable. Patient appears a healthy, anxious and emotional/tearful. Rest of exam is benign. She has a white count of 14.7 but the rest of her CBC and CMP is unremarkable. Troponins negative. EKG showed normal sinus rhythm and no ST segment ovation or depression seen. Chest x-ray showed no acute findings. Patient was given a dose of morphine and chewable aspirin and her symptoms improved greatly. I contacted Dr. Lauren about patient screening positive for suicide risk. He came down to the unit and talked with patient and he cleared her for discharge home. Patient actually has a an appointment with behavioral health tomorrow. Patient was diagnosed with atypical chest pain and was stable for discharge home. She was told to follow-up at her [facility] appointment tomorrow and return to ED precautions given. Patient understood and agreed with plan. Lab Data I reviewed the patient's lab results. 11/03/22 10:45 11/03/22 10:45 Radiology Impressions Chest X-Ray 11/03/22 10:16 IMPRESSION: No acute cardiopulmonary abnormality. Laboratory Results WBC 14.7 10^3/uL (4.0-10.0) H 11/03/22 10:45 RBC 5.03 10^6/uL (4.1-5.3) 11/03/22 10:45 Hgb 14.8 g/dL (11.5-15.3) 11/03/22 10:45 Hct 44.1 % (37.0-47.0) 11/03/22 10:45 MCV 87.7 fl (81-99) 11/03/22 10:45 MCH 29.4 pg (28.0-34.0) 11/03/22 10:45 MCHC 33.6 g/dL (30.0-36.0) 11/03/22 10:45 RDW 12.5 % (12.1-15.1) 11/03/22 10:45 Plt Count 326 10^3/cmm (130-400) 11/03/22 10:45 MPV 8.7 fL (7.4-10.4) 11/03/22 10:45 Neut % (Auto) 67.1 % 11/03/22 10:45 Lymph % (Auto) 21.8 % 11/03/22 10:45 [place] % (Auto) 8.8 % 11/03/22 10:45 Eos % (Auto) 1.4 % 11/03/22 10:45 Baso % (Auto) 0.1 % 11/03/22 10:45 Neut # (Auto) 9.85 10^3/uL (1.8-7.7) H 11/03/22 10:45 Lymph # (Auto) 3.2 10^3/uL (0.8-4.8) 11/03/22 10:45 [place] # (Auto) 1.3 10^3/uL (0.2-0.9) H 11/03/22 10:45 Eos # (Auto) 0.2 10^3/uL (0.0-0.8) 11/03/22 10:45 Baso # (Auto) 0.0 10^3/uL (0.0-0.1) 11/03/22 10:45 Nucleated RBC % (auto) 0 % 11/03/22 10:45 Nucleated RBCs # 0.0 /100WBC 11/03/22 10:45 Sodium 139 mmol/L (136-145) 11/03/22 10:45 Potassium 4.1 mmol/L (3.5-5.1) 11/03/22 10:45 Chloride 104 mmol/L (98-107) 11/03/22 10:45 Carbon Dioxide 24 mmol/L (22-29) 11/03/22 10:45 Anion Gap 15.1 (5-19) 11/03/22 10:45 BUN 11 mg/dL (6-20) 11/03/22 10:45 Creatinine 0.7 mg/dL (0.5-0.9) 11/03/22 10:45 GFR Calculation 92.2 mL/min (90-130) 11/03/22 10:45 Glucose 94 mg/dL (65-115) 11/03/22 10:45 Calculated Osmolality 287 mOsm/kg (285-295) 11/03/22 10:45 Calcium 9.3 mg/dL (8.5-10.5) 11/03/22 10:45 Total Bilirubin 0.2 mg/dL (0.15-1.2) 11/03/22 10:45 AST 12 U/L (0-32) 11/03/22 10:45 ALT 13 U/L (0-33) 11/03/22 10:45 Alkaline Phosphatase 60 U/L (35-105) 11/03/22 10:45 Troponin T Baseline 6 ng/L (0-10) 11/03/22 10:45 Troponin T 120 Minute 6.00 ng/L (0-10) 11/03/22 12:29 Delta Troponin T 0 ABS# (0-10) 11/03/22 12:29 Total Protein 7.0 g/dL (6.6-8.7) 11/03/22 10:45 Albumin 4.6 g/dL (3.5-5.2) 11/03/22 10:45 Globulin 2.4 g/dL (1.3-4.6) 11/03/22 10:45 EKG Data EKG 1: EKG interpretation date: 11/03/22 Interpretation: Normal sinus rhythm, 60 bpm, no ST segment elevation or depression seen. Discharge Plan Discharge Patient Disposition: Home Clinical Impression: Atypical chest pain Condition: Stable Prescriptions: No Action estradiol 1 mg tablet 1 mg PO DAILY Rx Instructions: off 1 week; repeat cycle levothyroxine 125 mcg tablet 125 mcg PO DAILY zolpidem [Ambien] 10 mg tablet 10 mg PO .at bedtime 30 Days Qty: 30 2RF acyclovir 400 mg tablet 400 mg PO DAILY diazepam 5 mg tablet 5 mg PO BID PRN (Reason: Agitation) Tri-Sheila 0.01-4-0.05 % cream 1 applic topical DAILY Qty: 30 2RF Rx Instructions: Apply a thin layer to affected area(s) once daily, as needed. sertraline 100 mg tablet 150 mg PO DAILY Qty: 45 1RF ondansetron HCl 4 mg tablet 4 mg PO .q6hr Qty: 30 2RF carisoprodol 250 mg tablet 250 mg PO TID PRN (Reason: muscle pain) Qty: 90 5RF cholestyramine-aspartame 4 gram Powder In Packet 4 g PO DAILY Seroquel 50 mg tablet 100 mg PO DAILY Xanax 1 mg Tablet 1 mg PO TID PRN (Reason: Anxiety) gabapentin 300 mg Capsule 300 mg PO BID ondansetron 4 mg tablet,disintegrating 4 mg PO Q8H PRN (Reason: nausea and vomiting) Qty: 14 0RF Discharge Orders: Discharge ED (Routine); Ordered 11/03/22 Ordered By: Ancelmo Stanley Referrals: Doc Lucas DO [Primary Care Provider] - Discharge Diet: Regular Discharge Activity: Increase activity as tolerated Patient Instructions: Chest Pain (DC), Noncardiac Chest Pain (ED) Activity Restrictions/Additional Instructions: Follow-up with medical provider as directed in the next 5 to 7 days for reevaluation. Take medications as prescribed. Return to the ER or your medical provider if condition worsens. Please read and understand discharge instructions. Thank you for choosing [facility] for your healthcare needs today. Please realize this is an emergency room and that we are providing you with a medical screening exam and this may not be complete and all inclusive of all the testing and or work up that you may need to determine your ailment or severity of your illness. It is very important that you follow up as instructed or that you return to the Emergency Department should you have concerns or if your condition changes or worsens in any way. Stand Alone Forms: Work/School Release Coding Level of Care Code ED [employer] Mover for Norma Caldwell
[2022-11-03 10:55] LABS: Basophils % 0.1 %; Eosinophils # 0.2 10^3/uL (0.0-0.8); Eosinophils % 1.4 %; Hematocrit 44.1 % (37.0-47.0); Hemoglobin 14.8 g/dL (11.5-15.3); Lymphocytes # 3.2 10^3/uL (0.8-4.8); Lymphocytes % 21.8 %; Mean Corpuscular HGB Conc 33.6 g/dL (30.0-36.0); Mean Corpuscular Hemoglobin 29.4 pg (28.0-34.0); Mean Corpuscular Volume 87.7 fl (81-99); Mean Platelet Volume 8.7 fL (7.4-10.4); Monocytes # 1.3 10^3/uL (0.2-0.9); Monocytes % 8.8 %; Neutrophils # 9.85 10^3/uL (1.8-7.7); Neutrophils % 67.1 %; Nucleated Red Blood Cells % 0 %; Platelet Count 326 10^3/cmm (130-400); Red Blood Count 5.03 10^6/uL (4.1-5.3); Red Cell Distribution Width 12.5 % (12.1-15.1); White Blood Count 14.7 10^3/uL (4.0-10.0)
[2022-11-03] MEDS: aspirin 81 mg Chew Tablet 324 MG PO (11:11)
[2022-11-03 11:13] LABS: Troponin(5th) Baseline 6 ng/L (0-10)
[2022-11-03] MEDS: ondansetron 2 mg/ML SDV 2 mL 4 MG IVP (11:13)
[2022-11-03] MEDS: morphine 4 mg/mL SDV 1 mL IVP (11:13)
--- NOTE | 2022-11-03 11:13 | PC.NURSE ---
morphine and zofran pushed by gerri hayes rn
[2022-11-03 11:16] LABS: Alanine Aminotransferase 13 U/L (0-33); Albumin Level 4.6 g/dL (3.5-5.2); Alkaline Phosphatase 60 U/L (35-105); Anion Gap 15.1 (5-19); Aspartate Amino Transferase 12 U/L (0-32); Blood Urea Nitrogen 11 mg/dL (6-20); Calcium 9.3 mg/dL (8.5-10.5); Carbon Dioxide 24 mmol/L (22-29); Chloride 104 mmol/L (98-107); Globulin 2.4 g/dL (1.3-4.6); Glomerular Filtration Rate 92.2 mL/min (90-130); Glucose 94 mg/dL (65-115); Osmolality Calculated 287 mOsm/kg (285-295); Potassium 4.1 mmol/L (3.5-5.1); Sodium 139 mmol/L (136-145); Total Bilirubin 0.2 mg/dL (0.15-1.2)
--- NOTE | 2022-11-03 12:13 | ECG_ITS ---
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 Measurements Intervals [place] Rate: 60 P: 50 [place]: 162 QRS: 3 QRSD: 101 T: -10 QT: 404 QTc: 405 Interpretive Statements SINUS RHYTHM LOW QRS VOLTAGE IN PRECORDIAL LEADS [QRS DEFLECTION < 1.0 mV IN CHEST LEADS] INCOMPLETE RIGHT BUNDLE BRANCH BLOCK [90+ ms QRS DURATION, TERMINAL R IN V1/V2, 40+ ms S IN I/aVL/V4/V5/V6] No previous ECG available for comparison Electronically Signed On 11-03-2022 16:44:12 CDT by Elvis Cronin M.D. [email or web address]
[2022-11-03 13:02] LABS: Troponin 5 2HR Delta 0 ABS# (0-10)
[2022-11-03] MEDS: HYDROcodone-acetaminophen 7.5-325 mg Tablet 1 TAB PO (13:31)
--- NOTE | 2022-11-03 14:05 | PC.NURSE ---
NOTIFIED PROVIDER DAVID THAT PT STATES THAT SHE WANTS TO GO TO SLEEP AND NOT WAKE UP. HE VERBALIZED UNDERSTANDING NO FURTHER ORDERS.
--- NOTE | 2022-11-03 14:20 | P.NPUCON_ITS ---
Providers/Reason for Consult Consulting Physican/Specialty*: Estiven Lauren MD/Psychiatry Reason for Consult*: suicidal ideation Primary Care Provider: Doc Lucas, DO Psych Consult HPI History of Present Illness April Christian is a 42 year old female who presented to the emergency department with complaints of chest pain. During the course of the interview the patient had reported that she had thoughts of not wanting to be here anymore . The patient had clarified that she does not have any active thoughts about hurting herself or others but reports that she would not mind if she was not alive. She expressed the fact that she has a 4-year-old child in her home and has no plans on hurting herself. She reports that she has been receiving treatment at the behavioral health clinic at [facility] for a few years for therapy. She states that Dr. Hope had seen her once in the past and she had been currently receiving medication management under Dr. Luo at [facility]. She reports that she has panic attacks that appear to uncued for the past year dating back to the of her in July 2021. She reports panic attacks occur approximately 2-3 times per week with agoraphobia noted. She reports that she gets chest pain and short of breath and states that the panic attacks last approximately 30 minutes. She reports that her primary care physician has been managing her medications. She also reports history of symptoms suggestive generalized anxiety disorder and reports having frequent pain issues associated with fibromyalgia. She reports having sleep continuity disruption. She reports feeling frequently tired. She denies any suicidal ideation. She does endorse some feelings of hopelessness and increased crying. She had reported having depression in the past but states that it has been worse over the past few months. She had stated that she has been taking her Xanax or diazepam as needed for panic attacks. She did not endorse any psychotic symptoms. She did not endorse any symptoms suggestive of july. Past psychiatric history: She has no history of inpatient psychiatric hospitalizations. Past medical history: She has a history of migraine headaches hypothyroidism along with fibromyalgia. Substance abuse history: She denies any drug or alcohol use. She denies any nicotine use. She denies any marijuana use. Surgical history: She has 4 C-sections, 2 laparoscopies, 1 cholecystectomy, 1 hysterectomy, 1 carpal tunnel surgery, Allergies: No known drug allergies Current medications: Xanax 1 mg 3 times a day as needed, Soma 250 mg 3 times a day, Valium 5 mg twice a day as needed, gabapentin 300 mg twice a day, levothyroxine 125 mcg daily, Seroquel 100 mg at night, Zoloft 150 mg daily, Ambien 10 mg at night Family psychiatric history: History of depression in mother. Legal Hx: none Social History: The patient lives in [place] with her 20-year-old son and 4-year-old daughter. She had reported that she had been depressed and anxious during her youngest child's . She has 2 older children that are adults that live outside of the home. She has been twice with her last having suddenly approximately 15 months ago. 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 She reports having graduated high school with no academic problems noted. She denied any history of sexual physical or emotional abuse. She states that she currently works full-time. Meds Home Medications and Allergies Home Medications Medication Instructions Recorded Confirmed Last Taken Type estradiol 1 mg tablet 1 mg PO DAILY 05/01/20 09/30/22 05/07/21 History levothyroxine 125 mcg tablet 125 mcg PO DAILY 05/01/20 09/30/22 05/07/21 History cholestyramine-aspartame 4 gram 4 g PO DAILY 05/07/21 09/30/22 05/07/21 History oral powder for susp in a packet ondansetron HCl 4 mg tablet 4 mg PO .q6hr #30 tabs 08/25/21 09/30/22 Unknown Rx zolpidem 10 mg tablet (Ambien) 10 mg PO .at bedtime 30 days #30 09/24/21 09/30/22 09/03/22 Rx tabs ondansetron 4 mg disintegrating 4 mg PO Q8H PRN nausea and 10/01/21 09/30/22 Unknown Rx tablet vomiting #14 tabs acyclovir 400 mg tablet 400 mg PO DAILY 07/27/22 09/30/22 08/04/22 History diazepam 5 mg tablet 5 mg PO BID PRN Agitation 07/27/22 09/30/22 08/29/22 History eozxauucbaqu-xksqjsfapbnt-sdmycewuu 1 applic topical DAILY #30 grams 07/27/22 0 09/30/22 Unknown Rx 0.01 %-4 %-0.05 % topical cream (Tri-Sheila) alprazolam 1 mg tablet (Xanax) 1 mg PO TID PRN Anxiety 09/04/22 09/30/22 09/04/22 History gabapentin 300 mg capsule 300 mg PO BID 09/04/22 09/30/22 09/04/22 History quetiapine 50 mg tablet (Seroquel) 100 mg PO DAILY 09/04/22 09/30/22 09/03/22 History sertraline 100 mg tablet 150 mg PO DAILY #45 tabs 09/10/22 09/30/22 Unknown Rx carisoprodol 250 mg tablet 250 mg PO TID PRN muscle pain #90 09/30/22 09/30/22 Unknown Rx tabs Allergies Allergy/AdvReac Type Severity Reaction Status Date / Time No Known Allergies Allergy Verified 09/30/22 09:26 PFSH NPU PFSH: Medical History 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 Depression with anxiety Grief reaction with prolonged bereavement History of gestational diabetes GDM with fourth Hot flashes Had LSO, but still has right ovary. Hypothyroidism Psychiatric care Surgical History H/O section (09/23/99) H/O section (05/11/02) H/O section (10/05/03) Performed by Dr. Keyes at [facility] in [place], [place]. H/O section (03/28/18) With tubal ligation. Performed by Dr. Kimball at [facility] in [place], [place]. H/O dilation and curettage (~11/2003) Due to bleeding H/O tubal ligation (03/28/18) Performed at time of section. Performed by Dr. Kimball at [facility] [place] in [place], [place]. History of carpal tunnel repair S/P hysterectomy with oophorectomy (04/04/19) TLH converted to JEF with LSO, extensive adhesiolysis, bladder cystotomy repair. Performed by Dr. Keyes at [facility] in [place], [place]. S/P laparoscopic cholecystectomy (07/27/18) Performed by Dr. Roach at [facility] [place] in [place]. S/P laparoscopy (09/13/09) ROMELIA. Performed by Dr. Keyes at [facility] [place] in [place], [place]. 3-hour adhesiolysis due to omental, ovarian, and tubal adhesions of the pelvis. S/P laparoscopy (08/30/10) ROMELIA. Performed by Dr. Keyes at [facility] [place] in [place], [place]. Extensive adhesions of the omentum to the left uterus and ovary and adhesions of the right tube and ovary. Family History Father Diabetes Hyperlipidemia Hypertension Stroke Heart disease Sister Diabetes Grandmother Heart disease paternal Breast cancer paternal Diabetes Paternal Hypertension Paternal Thyroid disease Paternal Mother Thyroid disease Grandfather Diabetes Paternal Hypertension Paternal Lung cancer Maternal Social History Smoking and tobacco status: never smoked Second hand smoke exposure: No Alcohol intake: never Substance/Drug Use: never Current gender identity: Female Mental Status Exam MSE Comments: She is a casually dressed white female who is lying in the hospital bed who appeared in some moderate distress that she appeared tearful while describing her history. She was a good historian and was pleasant and open in describing her problems. She had reported significant issues with pain. Was evidence of psychomotor retardation. Her mood was described as depressed. Her affect was restricted in range and mood-congruent. She denied any homicidal or suicidal ideation. She did not appear to be responding to internal stimuli. There was no evidence of any delusional thinking. Her attention and concentration appeared grossly intact. Her recent and remote memory appeared within normal limits. Her insight was fair. Her judgment is fair. Her impulse control appeared adequate. Vitals/I&O/Wt Last Vital Signs Temp 98.7 F 11/03/22 10:12 Pulse 65 11/03/22 13:57 Resp 21 H 11/03/22 13:57 BP 130/89 11/03/22 13:57 Pulse Ox 97 11/03/22 13:57 O2 Del Method Room Air 11/03/22 13:19 Weight last 48 hrs Weight 84.368 kg Data NPU 11/03/22 10:45 11/03/22 10:45 A&P Assessment and plan (1) Major depressive disorder, recurrent severe without psychotic features: (2) Hypothyroidism: (3) Atypical chest pain: (4) Panic disorder with agoraphobia: (5) Panic disorder with agoraphobia: (6) Generalized anxiety disorder: Plan 42-year-old white female with major depressive disorder and panic disorder currently depressed on multiple medications and currently receiving psychotherapy. She does not meet criteria for inpatient hospitalization psychiatrically. Recommendations were provided. It was recommended that the patient take only Xanax and to not take this medication on a routine basis but rather began taking it 1 mg 3 times a day and began the process of charting the frequency of her panic attacks. It was recommended the patient remain on Zoloft as prescribed and continue with cognitive behavioral therapy to help manage her panic disorder. The patient was informed that the prn use of xanax would not be helpful at reducing the frequency of the panic attacks. It was recommended that the patient receive psychiatric consultation for his medication. Attestations U Medical Necessity Statement*: NA Coding Level of Care Code Acute Code for Chg Fwd Diagnoses Major depressive disorder, recurrent severe without psychotic features F33.2 Hypothyroidism E03.9 Atypical chest pain R07.89 Panic disorder with agoraphobia F40.01 Generalized anxiety disorder F41.1
== END 2022-11-03 14:06 | disposition home or self-care (01) ==
PROVIDERS: Emergency Provider Physician Assistant; PCP Family Medicine
DX: R07.89 Other chest pain (principal)
CPT/HCPCS: 36415; 71045; 80053; 84484; 85025; 93005; 96374; 96375; 99285; J2270; J2405

== ENCOUNTER → 2022-12-25 10:31 | Outpatient (BNVA) | payer MEDICAID, SELFPAY | PROVIDERS: PCP Family Medicine; Referring Provider Emergency Medicine; Visit Provider Specialist | DX: F41.0 Panic disorder [episodic paroxysmal anxiety] (principal); F41.1 Generalized anxiety disorder; R56.9 Unspecified convulsions | CPT/HCPCS: 95812; 95816 ==

== ENCOUNTER → 2022-12-29 09:44 | Outpatient (BNVA) | payer MEDICAID, SELFPAY | PROVIDERS: PCP Family Medicine; Referring Provider Specialist; Visit Provider Specialist | DX: R56.9 Unspecified convulsions (principal); F41.1 Generalized anxiety disorder; F33.2 Major depressive disorder, recurrent severe without psychotic features; F40.01 Agoraphobia with panic disorder | CPT/HCPCS: 99205 ==

== ENCOUNTER 2023-01-20 10:43 | Outpatient (CLI) | payer MEDICAID, SELFPAY ==
--- NOTE | 2023-01-20 10:59 | MR_ITS ---
WS: [id number] MRI HEAD WITH CONTRAST TECHNIQUE: Sagittal T1, T2 axial, T2 axial FLAIR, axial susceptibility weighted imaging, axial diffus ion weighted images, and coronal T2 images were obtained. Pre and post-T1 axial and post T1 coronal i mages. ADC and FSPGR images. CLINICAL INFORMATION: WEAKNESS OF LEFT HAND COMPARISON: None. FINDINGS: No evidence of restricted diffusion to suggest acute ischemia. Ventricular system and basilar cistern s are patent. No suspicious intracranial signal abnormalities. Normal posterior fossa. Normal vascula r flow voids at the skull base. No extra-axial fluid collections. No evidence of mass or mass effect. Paranasal sinuses are well aerated. Mastoid air cells are well aerated. Normal posterior nasopharynx. Normal parapharyngeal fat. Normal optic chiasm and pituitary infundibulum. Temporal lobes hippocampal formations are normal in a ppearance. No signal abnormalities in the mesial temporal lobes. No abnormal intracranial enhancement. Normal visualized dural venous sinuses. IMPRESSION: 1. No evidence of restricted diffusion to suggest acute ischemia. 2. No suspicious intracranial signal abnormalities. Normal best-white differentiation. 3. No abnormal gadolinium enhancement. 4. Temporal lobes and hippocampal formations are normal in appearance. 5. No hemosiderin on susceptibility-weighted images. 6. No other suspicious findings.
[2023-01-20] MEDS: gadobenate dimeglumine 20 mL vial IV (11:38)
== END 2023-01-20 10:44 | disposition home or self-care (01) ==
LOC: RAD 10:45
PROVIDERS: PCP Family Medicine; Visit Provider Family Medicine
DX: R29.898 Other symptoms and signs involving the musculoskeletal system (principal)
CPT/HCPCS: 70553; A9577

== ENCOUNTER → 2023-03-31 10:15 | Outpatient (BNVA) | payer MEDICAID, SELFPAY | PROVIDERS: PCP Family Medicine; Visit Provider Family Medicine | DX: M54.50 Low back pain, unspecified (principal); M25.50 Pain in unspecified joint; M79.676 Pain in unspecified toe(s) | CPT/HCPCS: 84550; 85025; 85651; 86140 ==

== ENCOUNTER → 2023-04-30 16:00 | Outpatient (BNVA) | payer MEDICAID, SELFPAY | PROVIDERS: PCP Family Medicine; Visit Provider Nurse Practitioner Women's Health | DX: M54.50 Low back pain, unspecified (principal); R10.2 Pelvic and perineal pain | CPT/HCPCS: 87086 ==

== ENCOUNTER → 2023-05-19 10:58 | Outpatient (BNVA) | payer MEDICAID, SELFPAY | PROVIDERS: PCP Family Medicine; Visit Provider Nurse Practitioner Women's Health | DX: R10.2 Pelvic and perineal pain (principal) | CPT/HCPCS: 76830 ==

== ENCOUNTER 2023-08-28 15:40 | Emergency (ER) | payer MEDICAID, SELFPAY ==
[2023-08-28 15:44] VITALS: BP 116/82; PULSE 79; RESP 16; TEMP 36.9; O2SAT 99; BMI 33.6
--- NOTE | 2023-08-28 15:57 | XRR_ITS ---
PROCEDURE INFORMATION: Exam: XR Right Ankle Exam date and time: 08/28/2023 4:21 PM Age: 43 years old Clinical indication: Injury or trauma; Patient HX: RT ankle pain post fall TECHNIQUE: Imaging protocol: Radiologic exam of the right ankle. Views: 3 or more views. COMPARISON: No relevant prior studies available. FINDINGS: Bones/joints: There is an acute transverse nondisplaced fracture involving the distal tip of the fibula. No other fracture noted. Soft tissues: Soft tissue swelling is noted laterally. XR/XR ankle RT min 3V* [id number] IMPRESSION: Lateral malleolus fracture with normal bony alignment
--- NOTE | 2023-08-28 16:22 | ED_ITS ---
HPI - Extremity Injury (Lower) General: Chief Complaint: Extremity Injury, Lower Stated Complaint: right ankle pain Time Seen by Provider: 08/28/23 16:18 Source: patient Mode of arrival: wheelchair Limitations: no limitations History of Present Illness: Patient is a 43-year-old female presents to ED today for evaluation of right ankle injury that she sustained just prior to arrival after twisting it. She complains of pain and swelling to the lateral aspect of the right ankle. No other injuries or complaints at this time. Patient states she is able to bear weight on the extremity with a limp. MD complaint: ankle injury Onset (ago): hour(s) Injury: Right: ankle Type of Injury: inversion Place: home Severity: moderate Relieving factors: immobilization Exacerbating factors: weight bearing, movement and palpation Context: other (twisting) Associated symptoms: Reports no associated symptoms Other symptoms: none Treatments prior to arrival: bandage Review of Systems Musc: Reports: joint pain (R ankle) and joint swelling (R ankle); Denies: extremity pain or extremity swelling Neuro: Denies: numbness in extremities or sensory changes PFSH ED PFSH: Medical History No pertinent past medical history neghx:HTN,DM,DVT/PE PCP: Dr. Lucas and Dr. Luo Grief reaction with prolonged bereavement Psychiatric care Hot flashes Had LSO, but still has right ovary. 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 Surgical History History of carpal tunnel repair S/P hysterectomy with oophorectomy (04/04/19) TLH converted to JEF with LSO, extensive adhesiolysis, bladder cystotomy repair. Per[place] Dr. Keyes [place] [facility] [place], [place]. S/P laparoscopic cholecystectomy (07/27/18) Performed by Dr. Roach at [facility] in [place], [place]. H/O tubal ligation (03/28/18) Performed at time of section. Performed by Dr. Kimball at [facility] in [place], [place]. H/O section (03/28/18) With tubal ligation. Performed by Dr. Kimball at [facility] in [place]. S/P laparoscopy (08/30/10) ROMELIA. Performed by Dr. Keyes at [facility] in [place]. Extensive adhesions of the omentum to the left uterus and ovary and adhesions of the right tube and ovary. S/P laparoscopy (09/13/09) ROMELIA. Performed by Dr. Keyes at [facility] in [place], [place]. 3-hour adhesiolysis due to omental, ovarian, and tubal adhesions of the pelvis. H/O section (10/05/03) Performed by Dr. Keyes at [facility] in [place], [place]. H/O dilation and curettage (~11/2003) Due to bleeding H/O section (05/11/02) H/O section (09/23/99) Family History Father Diabetes Hyperlipidemia Hypertension Stroke Heart disease Sister Diabetes Grandmother Heart disease paternal Breast cancer paternal Diabetes Paternal Hypertension Paternal Thyroid disease Paternal Mother Thyroid disease Grandfather Diabetes Paternal Hypertension Paternal Lung cancer Maternal Social History Smoking and tobacco/nicotine status: never used tobacco/nicotine Second hand smoke exposure: No Alcohol intake: never Substance/Drug Use: never Current gender identity: Female Physical Exam Const: COMMON NORMALS: no acute distress, patient oriented x3, no limitations, healthy appearing, alert and well nourished Extremity: COMMON NORMALS: capillary refill normal, no calf tenderness and no pedal edema GENERAL: Yes normal exam except as noted RIGHT LOWER EXTREMITY: Yes foot & digits (significant swelling lateral R ankle; no obvious bony deformites) Right ankle: Yes palpation (TTP lateral ankle) and Yes neurovascular exam (normal) Neuro: COMMON NORMALS: patient oriented x3, moves all extremities, no focal motor deficits and no sensory deficits noted SENSORIUM/ORIENTATION: Yes alert Skin: TRAUMA: no lacerations or abrasions Course Vital Signs: Vital signs: Vital Signs Temperature 98.5 F 08/28/23 15:44 Pulse Rate 66 08/28/23 16:25 Respiratory Rate 20 H 08/28/23 16:25 Blood Pressure 125/82 08/28/23 16:25 Pulse Oximetry 100 08/28/23 16:25 Oxygen Delivery Me thod Room Air 08/28/23 16:25 MDM - Extremity Injury (Lower) Medical Decision Making XR showing distal fibular/lateral malleolar fracture. Will splint/crutches/non- weight bearing and will place CM referral for ortho follow up. XR interpretation done by ED provider, pending radiology final review Discharge Plan Discharge Patient Disposition: Home Clinical Impression: Fracture of lateral malleolus of right ankle Qualifiers: Encounter type: initial encounter Fracture type: closed Fracture alignment: nondisplaced Qualified Code(s): S82.64XA - Nondisplaced fracture of lateral malleolus of right fibula, initial encounter for closed fracture Condition: Stable Prescriptions: New hydrocodone-acetaminophen 5-325 mg tablet 1 tab PO Q6H PRN (Reason: pain) Qty: 14 0RF No Action estradiol 1 mg tablet 1 mg PO DAILY Rx Instructions: off 1 week; repeat cycle zolpidem [Ambien] 10 mg tablet 10 mg PO .at bedtime 30 Days Qty: 30 2RF acyclovir 400 mg tablet 400 mg PO DAILY PRN pregabalin [Lyrica] 75 mg capsule 75 mg PO BID topiramate [Topamax] 25 mg tablet 25 mg PO BID 30 Days Qty: 60 3RF amitriptyline 25 mg tablet 25 mg PO DAILY Qty: 30 3RF Rx Instructions: Take at bedtime quetiapine 100 mg tablet PO levothyroxine 150 mcg tablet PO Botox 100 unit recon soln 100 unit IM ONCE Qty: 2 4RF Rx Instructions: standard fda approved protocol sertraline 100 mg tablet See Rx Instructions .ROUTE .COMPLEX Qty: 45 1RF Dose Instruction: TAKE 1 & 1/2 TABLET BY MOUTH ONCE DAILY Rx Instructions: TAKE 1 & 1/2 TABLET BY MOUTH ONCE DAILY Emgality Pen 120 mg/mL pen injector See Rx Instructions .ROUTE .COMPLEX Qty: 1 3RF Dose Instruction: Inject 120mg subcutaneously EVERY 30 DAYS (don't fill TILL 02/26/2023) Rx Instructions: Inject 120mg subcutaneously EVERY 30 DAYS (don't fill TILL 02/26/2023) carisoprodol 350 mg tablet 350 mg PO TID Qty: 90 5RF propranolol 20 mg tablet 20 mg PO BID Qty: 120 0RF cholestyramine-aspartame 4 gram Powder In Packet 4 g PO DAILY Xanax 1 mg Tablet 1 mg PO TID PRN (Reason: Anxiety) ondansetron 4 mg tablet,disintegrating 4 mg PO Q8H PRN (Reason: nausea and vomiting) Qty: 14 0RF Discharge Orders: Discharge ED (Routine); Ordered 08/28/23 Ordered By: Romy Coffman Referrals: Doc Lucas DO [Primary Care Provider] - Patient Instructions: Ankle Fracture (DC), Opioid Safety, Pain Management Activity Restrictions/Additional Instructions: As we discussed no weightbearing until told otherwise by orthopedics. Ice and elevate the extremity to help with swelling. Case management should reach out to you this week to help set you up with your follow-up orthopedic appointment. Coding Level of Care Code ED Student Services Representative for Norma Caldwell
[2023-08-28 16:25] VITALS: BP 125/82; PULSE 66; RESP 20; O2SAT 100
[2023-08-28] MEDS: HYDROcodone-acetaminophen 5-325 mg Tablet 1 TAB PO (17:03)
[2023-08-28 17:12] VITALS: BP 125/82; PULSE 61; RESP 18; TEMP 36.9; O2SAT 98
--- NOTE | 2023-08-31 14:47 | DCPLANNER ---
Message sent to Ortho for Follow up on A Distal Fib Fracture.
== END 2023-08-28 17:15 | disposition home or self-care (01) ==
PROVIDERS: Emergency Provider Physician Assistant; PCP Family Medicine
DX: S82.64XA Nondisplaced fracture of lateral malleolus of right fibula, initial encounter for closed fracture (principal); X50.1XXA Overexertion from prolonged static or awkward postures, initial encounter
CPT/HCPCS: 73610; 99283; E0114

== ENCOUNTER → 2023-09-01 14:54 | Outpatient (BNVA) | payer MEDICAID, SELFPAY | PROVIDERS: PCP Family Medicine; Visit Provider Podiatrist Foot & Ankle Surgery | DX: S82.64XA Nondisplaced fracture of lateral malleolus of right fibula, initial encounter for closed fracture (principal); X50.1XXA Overexertion from prolonged static or awkward postures, initial encounter | CPT/HCPCS: 73610 ==

== ENCOUNTER → 2023-09-16 07:12 | Outpatient (BNVA) | payer MEDICAID, SELFPAY | PROVIDERS: PCP Family Medicine; Visit Provider Podiatrist Foot & Ankle Surgery | DX: S82.64XD Nondisplaced fracture of lateral malleolus of right fibula, subsequent encounter for closed fracture with routine healing; X58.XXXD Exposure to other specified factors, subsequent encounter | CPT/HCPCS: 73610 ==

== ENCOUNTER → 2023-10-15 13:59 | Outpatient (BNVA) | payer MEDICAID, SELFPAY | PROVIDERS: PCP Family Medicine; Visit Provider Podiatrist Foot & Ankle Surgery | DX: S82.64XD Nondisplaced fracture of lateral malleolus of right fibula, subsequent encounter for closed fracture with routine healing (principal); X58.XXXD Exposure to other specified factors, subsequent encounter | CPT/HCPCS: 73610 ==

== ENCOUNTER 2024-01-28 10:22 | Emergency (ER) | payer SELFPAY ==
[2024-01-28 11:23] VITALS: BP 133/88; PULSE 86; RESP 16; TEMP 36.8; O2SAT 99; BMI 33.6
[2024-01-28 12:05] VITALS: BP 136/91; PULSE 88; RESP 16; O2SAT 95
--- NOTE | 2024-01-28 12:05 | CT_ITS ---
WS: [id number] CT CERVICAL SPINE HISTORY: trauma, neck pain TECHNIQUE: Contiguous 2.0 mm axial imaging performed through the entire cervical spine. Sagittal and coronal reformats also performed. All CT scans at [facility] use at least one of these dose o ptimization techniques: automated exposure control; mA and/or kV adjustment per patient size (include s targeted exams where dose is matched to clinical indication); or iterative reconstruction. DLP: 2158.35 mGy.cm COMPARISON: None available. Reversal the normal cervical lordosis centered at C5. C4 anterolisthesis by 2 mm. Asymmetric disc spa ce narrowing at C4-5. There is mild asymmetric widening of the C4-5 facet joint. Similar appearance w as noted on radiographs from 04/29/2022. No acute fracture. Osteophytic ridging at C4-5, C5-6 and C6-7 resulting in mild foraminal stenosis and central stenosis at C5-6. There is also a central disc protrusion. Lung apices are clear. CT/CT cervical spin wo con* [id number] IMPRESSION: 1. No acute cervical spine fracture. 2. Reversal of the normal cervical lordosis centered at C5. 3. Asymmetric disc space and facet joint widening at C4-5. Very similar findin gs noted on a prior radiograph from 2021. These changes do not appear to be ass ociated with the recent trauma.
--- NOTE | 2024-01-28 12:06 | CT_ITS ---
WS: [id number] CT HEAD NONCONTRAST HISTORY: Traumatic head pain TECHNIQUE: Contiguous axial imaging performed through the brain in 3.0 mm imaging. Bone and soft tiss ue windows. Sagittal and coronal reformats reviewed. All CT scans at [facility] use at least one of these dose optimization techniques: automated exposure control; mA and/or kV adjustment per pa tient size (includes targeted exams where dose is matched to clinical indication); or iterative recon struction. DLP: 2158.35 mGy.cm COMPARISON: None available. No acute intracranial hemorrhage, midline shift or mass effect. No atrophy or prior infarcts or herniation. Ventricles: Normal size with no hydrocephalus. Paranasal sinuses: As visualized are clear. Mastoid air cells: Well pneumatized. Calvarium and scalp: Skull is intact with no soft tissue edema or swelling. CT/CT head wo con* [id number] IMPRESSION: Negative head CT.
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
[2024-01-28] MEDS: ketorolac 60 mg/2 mL INJ IM (13:21)
[2024-01-28] MEDS: orphenadrine 30 mg/mL Inj 2 mL 60 MG IM (13:21)
[2024-01-28] MEDS: tetanus-dipt-pertussis 0.5 mL SDV IM (13:21)
[2024-01-28 14:38] VITALS: BP 125/70; PULSE 73; RESP 16; O2SAT 96
== END 2024-01-28 14:38 | disposition home or self-care (01) ==
PROVIDERS: Emergency Provider Emergency Medicine; PCP Family Medicine
DX: S01.01XA Laceration without foreign body of scalp, initial encounter (principal); S16.1XXA Strain of muscle, fascia and tendon at neck level, initial encounter; Y04.2XXA Assault by strike against or bumped into by another person, initial encounter; Z23 Encounter for immunization
CPT/HCPCS: 70450; 72125; 90715; 96372; 99284; J1885; J2360

== ENCOUNTER → 2024-03-13 10:00 | Outpatient (BNVA) | payer MEDICAID, SELFPAY | PROVIDERS: PCP Family Medicine; Visit Provider Family Medicine | DX: M54.12 Radiculopathy, cervical region (principal); M25.50 Pain in unspecified joint; M54.50 Low back pain, unspecified; E03.9 Hypothyroidism, unspecified; R11.0 Nausea; E55.9 Vitamin D deficiency, unspecified; R79.89 Other specified abnormal findings of blood chemistry | CPT/HCPCS: 80053; 80061; 82306; 82607; 82728; 82746; 83540; 84439; 84443; 84481; 85025; 85651; 86038; 86140; 86200; 86431 ==

== ENCOUNTER → 2024-03-14 14:35 | Outpatient (BNVA) | payer MEDICAID, SELFPAY | PROVIDERS: PCP Family Medicine; Visit Provider Orthopaedic Surgery | DX: M54.12 Radiculopathy, cervical region (principal); M54.2 Cervicalgia | CPT/HCPCS: 72050; 99204 ==

== ENCOUNTER → 2024-08-10 08:42 | Outpatient (BNVA) | payer MEDICAID, SELFPAY | PROVIDERS: PCP Family Medicine; Visit Provider Family Medicine | DX: E03.9 Hypothyroidism, unspecified (principal) | CPT/HCPCS: 84439; 84443 ==

== ENCOUNTER → 2024-08-17 11:38 | Outpatient (BNVA) | payer MEDICAID, SELFPAY | PROVIDERS: PCP Family Medicine; Visit Provider Nurse Practitioner Women's Health | DX: R53.83 Other fatigue (principal) | CPT/HCPCS: 82670; 82728; 83001; 83540 ==

== ENCOUNTER → 2024-09-05 13:47 | Outpatient (BNVA) | payer MEDICAID, SELFPAY | PROVIDERS: PCP Family Medicine; Visit Provider Orthopaedic Surgery | DX: M54.9 Dorsalgia, unspecified (principal) | CPT/HCPCS: 72072; 72110 ==

== ENCOUNTER → 2024-12-28 09:01 | Outpatient (BNVA) | payer MEDICAID, SELFPAY | PROVIDERS: PCP Family Medicine; Visit Provider Family Medicine | DX: R79.89 Other specified abnormal findings of blood chemistry (principal); E03.9 Hypothyroidism, unspecified; G47.00 Insomnia, unspecified; R53.82 Chronic fatigue, unspecified | CPT/HCPCS: 80053; 80061; 82607; 84439; 84443; 85025 ==